=== PATIENT | male | born 1935 | race Caucasian/White ===

== ENCOUNTER 2018-11-10 23:39 | Emergency (ER) | payer MEDICARE, BC ==
[~2018-11-10] VITALS: Ht 170.2 cm; Wt 69.9 kg
--- NOTE | 2018-11-11 00:26 | PHYS DOC ---
Past History Past Medical History: A-Fib, CAD, CHF, GERD, High Cholesterol, Hypothyroid, Other Past Surgical History: Appendectomy, Other Smoking: Quit Greater Than 1 Year Alcohol Use: None Drug Use: None Adult General Chief Complaint Chief Complaint: WEAKNESS/GENERALIZED HPI HPI Patient is an 83 YO M that is presenting with SOA and weakness that has progressively worsened over the past two weeks. Patient has a history of CHF and chronic ascites of unknown origin that is managed with twice weekly abdominal paracentesis at home. He states that the last two times they have drawn fluid out of his abdominal cavity there has been less and less fluid but he states that his abdominal distension has not gotten any worse. He has noticed mild lower extremity edema in the last couple weeks but is improved from prior. Reports he is scheduled for a cardiology appointment at with echo on the of this month, CHF is managed with Lasix. He denies cough, nausea, vomiting, diarrhea, constipation, and abdominal pain. History of diabetes managed with metformin until two months ago when kidney function was declining and metformin was discontinued. Denies trauma, falls, and LOC. Review of Systems Review of Systems Constitutional: Denies fever or chills [] Eyes: Denies change in visual acuity, redness, or eye pain [] HENT: Denies nasal congestion or sore throat [] Respiratory: Denies cough, reports shortness of breath [] Cardiovascular: Denies chest pain or palpitations [] GI: Denies abdominal pain, nausea, vomiting, or diarrhea [] Integument: Denies rash or skin lesions [] Neurologic: Denies headache, focal weakness or sensory changes [] Complete systems were reviewed and found to be within normal limits, except as documented in this note. Physical Exam Physical Exam Constitutional: Well developed, well nourished, no acute distress, non-toxic appearance. [] HENT: Normocephalic, atraumatic, nose normal. [] Eyes: Conjunctiva normal, no discharge. [] Neck: Normal range of motion, no tenderness, supple. [] Cardiovascular: Heart rate irregular rhythm, no murmur [] Lungs & Thorax: Diffuse end expiratory wheezing [] Abdomen: Soft, no tenderness, reducible right of midline hernia, mild ascites, intraperitoneal drain noted on the right side Rectal exam: No external hemorrhoids noted, Digital rectal exam performed: no gross blood noted, stool brown Skin: Warm, dry, no erythema, no rash. [] Extremities: No tenderness, 1+ pitting edema of bilateral LE. [] Neurologic: Alert and oriented X 3, no focal deficits noted. [] Psychologic: Affect normal, judgement normal, mood normal. [] Current Patient Data Vital Signs Vital Signs Date Time Temp Pulse Resp B/P (MAP) Pulse Ox O2 Delivery O2 Flow Rate FiO2 11/10/18 23:49 97.6 104 22 97 Room Air EKG EKG @ 2334 sinus rhythm with premature atrial contractions at 81 BPM, NO ST elevation Radiology/Procedures Radiology/Procedures CXR AP (preliminary interpretation per ED physician) NO acute process Course & Med Decision Making Course & Med Decision Making Pertinent Labs and Imaging studies reviewed. (See chart for details) Patient is an 83 YO M that presented with progressive weakness and shortness of breath. Patient has history of chronic ascites and CHF. Chest x-ray was negative for increased vascular markings or acute pathology. Labs showed hemoglobin of 8.8, creatinine of 2.2, BUN of 91, BNP of 4963, and magnesium of 1.4. Magnesium and fluid replacement was initiated. Patient was schedule for cardiac work-up and possible surgical intervention at within the next week so family requested transfer there for admission and further evaluation and treatment. Occult stool obtained and positive. No gross blood noted in digital rectal exam. Protonix bolus/gtt initiated. Utilized transfer line. Dr. Asim Jensen (internal medicine) accepting of transfer for admission. Discussed findings and plan with patient and family, who acknowledge understanding and agreement.. Dragon Disclaimer Dragon Disclaimer This electronic medical record was generated, in whole or in part, using a voice recognition dictation system. Departure Departure: Impression: Primary Impression: Weakness Additional Impressions: Anemia Renal insufficiency Hypomagnesemia Occult blood positive stool Disposition: XFER OTHER (- for continuity of care and per patient/family request) Condition: STABLE Referrals: NJ BARNES MD (PCP) Problem Qualifiers Additional Impressions: Anemia Anemia type: unspecified type Qualified Codes: D64.9 - Anemia, unspecified YIFAN ATKINSON DO Nov 11, 2018 00:26
[2018-11-11 00:40] LABS: BASO % 0 % (0-3); EOS % 0 % (0-3); HEMATOCRIT 26.5 % (39.0-53.0); HEMOGLOBIN 8.8 g/dL (13.0-17.5); LYMPH # 1.9 x10^3/uL (1.0-4.8); LYMPH % 21 % (24-48); MEAN CORPUSCULAR HEMOGLOBIN 28 pg (25-35); MEAN CORPUSCULAR HGB CONC 33 g/dL (31-37); MEAN CORPUSCULAR VOLUME 83 fL (79-100); MONO % 11 % (0-9); NEUT # 6.2 x10^3uL (1.8-7.7); NEUT % 68 % (31-73); PLATELET COUNT 443 x10^3/uL (140-400); RED CELL DISTRIBUTION WIDTH 16.8 % (11.5-14.5); WHITE BLOOD COUNT 9.1 x10^3/uL (4.0-11.0)
[2018-11-11 01:03] LABS: ALBUMIN 0.9 g/dL (3.4-5.0); ALBUMIN/GLOBULIN RATIO 0.2 (1.0-1.7); CALCIUM 7.2 mg/dL (8.5-10.1); CREATININE 2.2 mg/dL (0.7-1.3); GFR 28.7; MAGNESIUM 1.4 mg/dL (1.8-2.4); TOTAL BILIRUBIN 0.2 mg/dL (0.2-1.0); TOTAL PROTEIN 5.5 g/dL (6.4-8.2)
[2018-11-11 01:17] LABS: % BANDS 3 % (0-9); % EOS 2 % (0-5); % LYMPHS 17 % (24-48); % MONOS 4 % (0-10); % SEGS 74 % (35-66)
[2018-11-11 01:18] LABS: PLT ESTIMATE INCREASED (ADEQUATE)
[2018-11-11] MEDS ORDERED: IV NORMAL SALINE 500ML 500 ML IV ONE (02:00)
[2018-11-11] MEDS ORDERED: MAGNESIUM SULFATE 2GM 50 ML IV ONE (02:00)
[2018-11-11 03:54] LABS: FECAL OB PT POSITIVE (NEG)
[2018-11-11] MEDS ORDERED: PANTOPRAZOLE IV 40 MG VIAL. ONE (04:13)
[2018-11-11 04:20] VITALS: BP 96/56
[2018-11-11] MEDS ORDERED: PANTOPRAZOLE IV 40 MG VIAL. IVP ONE (04:30)
--- NOTE | 2018-11-11 06:50 | EKG ---
[address] [address] Test Date: 2018-11-10 Test Time: 23:54:26 Pat Name: JAMES ALEMAN Department: Room: Gender: M Music Writer: : 1935 Requested By: YIFAN ATKINSON Order Number: [id number] Reading MD: Measurements Intervals [place] Rate: 81 P: 63 TN: 166 QRS: 47 QRSD: 82 T: 40 QT: 364 QTc: 428 Interpretive Statements SINUS RHYTHM ATRIAL PREMATURE COMPLEX(ES) LOW LIMB LEAD VOLTAGE NO SPECIFIC ECG ABNORMALITIES RI6.01 Unconfirmed report No previous ECG available for comparison
--- NOTE | 2018-11-11 08:13 | RAD ---
Portable chest, 11/10/2018: HISTORY: Dyspnea The heart size and pulmonary vascularity are normal. No pulmonary infiltrate is seen. There is no evidence of pleural fluid. IMPRESSION: No acute cardiopulmonary abnormality is detected. Electronically signed by: Brad Clinton MD (11/11/2018 8:09 AM) [facility]
[2018-11-11 08:14] LABS: BGAS PH 7.52 (7.35-7.46)
== END 2018-11-11 04:24 | disposition short-term general hospital (02) ==
LOC: ER 23:39
DX: R53.1 Weakness (principal); R60.0 Localized edema; D64.9 Anemia, unspecified; N28.9 Disorder of kidney and ureter, unspecified; K92.1 Melena; E11.9 Type 2 diabetes mellitus without complications; E83.42 Hypomagnesemia; I48.91 Unspecified atrial fibrillation; I25.10 Atherosclerotic heart disease of native coronary artery without angina pectoris; I50.9 Heart failure, unspecified; K21.9 Gastro-esophageal reflux disease without esophagitis; E78.00 Pure hypercholesterolemia, unspecified; E03.9 Hypothyroidism, unspecified; Z87.891 Personal history of nicotine dependence
CPT/HCPCS: 36415; 71045; 80053; 82140; 82274; 82553; 82803; 83605; 83735; 83880; 84484; 85007; 85025; 93005; 96365; 96375; 99285; C9113; J3010; J3475; J7040